=== PATIENT | female | born 1980 | race African-American/Black ===

== ENCOUNTER 2023-11-16 13:35 | Emergency (ER) | payer SELFPAY ==
[2023-11-16 13:44] VITALS: BP 152/91
[2023-11-16 14:03] LABS: % Basophils 0.6 % (0-2); % Eosinophils 2.8 % (0-6); % Immature Granulocytes 0.2 % (0-0.5); % Lymphocytes 33.3 % (20.5-51.1); % Monocytes 11.2 % (1.7-9.3); % Neutrophils 51.9 % (42.2-75.2); Absolute Eosinophils 0.1 10^3/uL (0-0.7); Absolute Lymphocytes 1.7 10^3/uL (1.2-3.4); Absolute Monocytes 0.6 10^3/uL (0.1-0.6); Absolute Neutrophils 2.6 10^3/uL (1.4-6.5); Hematocrit 45.5 % (37.0-47.0); Hemoglobin 15.1 g/dL (12.0-16.0); Mean Corp Hgb Conc. 33.2 g/dL (33.0-37.0); Mean Corpuscular Hgb 32.4 pg (27.0-31.0); Mean Corpuscular Volume 97.6 fL (81.0-99.0); Mean Platelet Volume 9.7 fL (7.4-10.4); Nucleated Red Blood Cells % 0 %; Platelet Count 231 10^3/uL (130-400); Red Blood Cell Count 4.66 10^6/uL (4.20-5.40); Red Cell Dist. Width 12.9 % (11.5-14.5); White Blood Cell Count 5.1 10^3/uL (4.8-10.8)
[2023-11-16 14:19] LABS: ALT (SGPT) 23 U/L (0-35); AST (SGOT) 21 U/L (14-36); Albumin 4.7 g/dl (3.5-5.0); Alkaline Phosphatase 52 U/L (38-126); Blood Urea Nitrogen 9 mg/dl (7-17); Calcium 11.2 mg/dl (8.4-10.2); Carbon Dioxide 23 mmol/L (22-30); Chloride 101 mmol/L (98-107); Glucose 120 mg/dl (70-99); Potassium 4.8 mmol/L (3.5-5.1); Sodium 136 mmol/L (135-145); Total Bilirubin 0.8 mg/dl (0.2-1.3); Total Protein 7.3 g/dl (6.3-8.2); eGFR > 60.00
[2023-11-16 14:35] LABS: Beta HCG Quantitative 330.65 mIU/ml
--- NOTE | 2023-11-16 16:12 | ED.GENMED ---
History of Present Illness
General
Chief Complaint: Problems
Time Seen by Provider: 11/16/23 16:12
Travel History
Have you had any contact with someone who has COVID-19?: No
Do you have any symptoms of coronavirus? Fever > 100 degrees, chills, cough, shortness of breath, sore throat, loss of taste or smell, muscle aches, or headache?: No
Phy Exam
Physical Exam
Physical Exam:
GENERAL: No acute distress. A&Ox3.
CONSTITUTIONAL: Afebrile.
EYES: PERRL, conjunctivae normal
Neck: Supple
ENMT: moist mucus membranes, Pharynx nl
RESPIRATORY: Regular respirations, nonlabored, lungs clear.
CARDIOVASCULAR: Regular rate and rhythm, no murmurs, no rubs.
GI: Soft, nontender, normal BS
MUSCULOSKELETAL: Moves with ease. Well perfused.
SKIN: Warm, dry, pink
PSYCH: Normal mood and affect. Well kept, interactive and appropriate
NEUROLOGIC: Awake, alert and oriented. No focal neurological deficits
Course
Orders/Labs/Results
Orders:
Orders
11/16/23 13:47
US Pelvis W Transvag Combined Urgent
Reason For Exam: 7 week preg with bleeding
11/16/23 13:52
Type+Screen Urgent
Beta HCG Quantitative Urgent
Is this a screen?: No
Comment: need beta
Complete Blood Count/With Diff Urgent
Comprehensive Metabolic Panel Urgent
Abnormal Lab Results
11/16/23
13:52
MCH 32.4 H pg
(27.0-31.0)
Monocytes % 11.2 H %
(1.7-9.3)
Glucose 120 H mg/dl
(70-99)
Calcium 11.2 H mg/dl
(8.4-10.2)
11/16/23 13:52
11/16/23 13:52
Vital Signs
Initial and Last Documented VS:
Initial Vital Signs
Temp Pulse Resp BP Pulse Ox
98.4 F 82 16 152/91 100
11/16/23 13:44 11/16/23 13:44 11/16/23 13:44 11/16/23 13:44 11/16/23 13:44
Last Documented Vital Signs
Temp Pulse Resp BP Pulse Ox
98.4 F 82 16 152/91 100
11/16/23 13:44 11/16/23 13:44 11/16/23 13:44 11/16/23 13:44 11/16/23 13:44
ED Attending Note
-
Portions of this chart may have been created with voice recognition software.� Occasional wrong word or��sound alike� substitutions may have occurred due to the inherent limitations of voice recognition software.
Discharge Plan
Departure
Patient Disposition: Home (Routine Discharge)
Discharge Problem:
Miscarriage
Instructions: Miscarriage (DC)
Referrals:
Jennifer Lund, DO [Active] - Follow up in 2-3 days (Please call in the AM to schedule your appointment. You will need a repeat HCG in 2 days.)
NONE,* [Family Provider] -
Activity Restrictions/Additional Instructions:
Followup with Dr. Lund. You will need a repeat HCG in 2 days. Return to the emergency department immediately for any changes in/worsening of your symptoms.
Interventions
Interventions:
*Risk Screen - Suicide Last Done: 11/16/23 13:44
*General Assessment Last Done: 11/16/23 13:44
*Neglect/Abuse Screening Last Done: 11/16/23 13:44
*ED COVID-19 Vaccine History Last Done: 11/16/23 13:44
Discharge Date and Time
Print Language: IRISH
--- NOTE | 2023-11-16 18:35 | ED.GENMED ---
History of Present Illness
General
Chief Complaint: Problems
Source: patient
Exam Limitations: none
Time Seen by Provider: 11/16/23 16:12
Nursing documentation reviewed up to this point in time: agreed with
Travel History
Have you had any contact with someone who has COVID-19?: No
Do you have any symptoms of coronavirus? Fever > 100 degrees, chills, cough, shortness of breath, sore throat, loss of taste or smell, muscle aches, or headache?: No
History of Present Illness
History of Present Illness:
Patient to ED with complaint of lower abdominal pain, vaginal bleeding. States she took a home preg test and tested pos. She believes that she is approx 6-7 weeks . 3 nights ago she noted rust colored vaginal discharge. Lasted approx 6
hours. 2 nights ago she had rust colored discharge for 2 hours. Denies passing any clots. Reports intermittent left lower quad discomfort initially. Now notes intermittent left and right lower abd discomfort. Brought self to ED for eval. SHe is
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 [id number]
Past History
Past History
ED Past Medical History: None
ED Past Surgical History: None
Social History
Tobacco: Non-smoker
Alcohol: None
Drug: None
Review of Systems
Review of Systems
Allergies reviewed?: Yes
All Other Systems: ROS reviewed and negative except as documented in HPI and ROS
Constitutional: Reports no symptoms
EENT: Reports no symptoms
Respiratory: Reports no symptoms
Cardiac: Reports no symptoms
ABD/GI: Reports abdominal pain (lower abdominal pain )
: Reports other (rust vaginal discharge 2 days ago.)
Musculoskeletal: Reports no symptoms
Psychiatric: Reports no symptoms
Phy Exam
General Physical Exam
General Presentation: well appearing and no apparent distress
General age: appears stated age
General Skin: warm and dry
General Habitus: normal
General Mental: alert
General Hydration: appears well hydrated
Gastrointestinal Exam
Gastrointestinal Exam: normal bowel sounds, soft, no organomegaly, no pulsatile mass, non distended and no cva tenderness
Palpation: left lower quadrant: Minimal tenderness and right lower quadrant: Minimal tenderness
Genitourinary Exam Female
Exam Female: other (Deferred pelvic exam. Pelvic US completed)
Musculoskeletal Exam
Musculoskeletal Exam: full ROM and neuro vasc intact
Skin Exam
Skin Exam: normal color, warm/dry and no rash
Psychiatric Exam
Psychiatric Exam: normal mood/affect
Course
Orders/Labs/Results
Orders:
Orders
11/16/23 13:47
US Pelvis W Transvag Combined Urgent
Reason For Exam: 7 week preg with bleeding
11/16/23 13:52
Type+Screen Urgent
Beta HCG Quantitative Urgent
Is this a screen?: No
Comment: need beta
Complete Blood Count/With Diff Urgent
Comprehensive Metabolic Panel Urgent
Abnormal Lab Results
11/16/23
13:52
MCH 32.4 H pg
(27.0-31.0)
Monocytes % 11.2 H %
(1.7-9.3)
Glucose 120 H mg/dl
(70-99)
Calcium 11.2 H mg/dl
(8.4-10.2)
11/16/23 13:52
11/16/23 13:52
Vital Signs
Initial and Last Documented VS:
Initial Vital Signs
Temp Pulse Resp BP Pulse Ox
98.4 F 82 16 152/91 100
11/16/23 13:44 11/16/23 13:44 11/16/23 13:44 11/16/23 13:44 11/16/23 13:44
Last Documented Vital Signs
Temp Pulse Resp BP Pulse Ox
98.4 F 82 16 152/91 100
11/16/23 13:44 11/16/23 13:44 11/16/23 13:44 11/16/23 13:44 11/16/23 13:44
Information
Weeks gestation: Weeks: (6)
Location: N/A
*Radiology
Radiology exam reviewed: radiology read reviewed
*Pulse Oximetry
Patient hypoxic: no
*Critical Care Note
Total Time (30-74mins, 75-104mins- exclusive of procedures): Not Applicable
Update Note
Update Note:
Cased discussed with Dr. Lund via tiger text. Patient to be discharged home and will follow up with Dr. Lund in the office. Will need repeat HCG in 2 days. Patient is agreeable to this plan. Will return to ED for any changes in/worsening
of her symptoms.
ED Attending Note
-
Portions of this chart may have been created with voice recognition software.� Occasional wrong word or��sound alike� substitutions may have occurred due to the inherent limitations of voice recognition software.
Discharge Plan
Departure
Patient Disposition: Home (Routine Discharge)
Patient with high blood pressure during this ER visit?: No
Discharge Problem:
Miscarriage
Instructions: Miscarriage (DC)
Referrals:
Jennifer Lund, DO [Active] - Follow up in 2-3 days (Please call in the AM to schedule your appointment. You will need a repeat HCG in 2 days.)
NONE,* [Family Provider] -
Activity Restrictions/Additional Instructions:
Followup with Dr. Lund. You will need a repeat HCG in 2 days. Return to the emergency department immediately for any changes in/worsening of your symptoms.
Interventions
Interventions:
*Risk Screen - Suicide Last Done: 11/16/23 13:44
*General Assessment Last Done: 11/16/23 13:44
*Neglect/Abuse Screening Last Done: 11/16/23 13:44
ED- Fall Risk Assessment Last Done: 11/16/23 16:30
*ED COVID-19 Vaccine History Last Done: 11/16/23 13:44
*Nursing Disposition Last Done: 11/16/23 17:34
ED-Female Genitourinary Assessment Last Done: 11/16/23 16:30
Discharge Date and Time
Discharge Date/Time: 11/16/23 17:35
Print Language: [id number]
== END 2023-11-16 17:35 | disposition home or self-care (01) ==
LOC: EMR 13:35
PROVIDERS: Emergency Medicine; EMERGENCY PHYSICIAN Emergency Medicine
DX: O03.9 Complete or unspecified spontaneous abortion without complication (principal)
CPT/HCPCS: 99284; 76830; 76856; 80053; 84702; 85025; 86850; 86900; 86901